=== PATIENT | male | born 1950 | race Caucasian/White ===

== ENCOUNTER → 2016-07-25 | Outpatient (CLI) | payer OTHER ==
[2016-07-25 08:50] LABS: BASOPHILS # (AUTO) 0.03 10*3/UL; BASOPHILS % (AUTO) 0.6 % (0-1); EOSINOPHILS # (AUTO) 0.12 10*3/UL; EOSINOPHILS % (AUTO) 2.5 % (0-8); HEMATOCRIT 44.5 % (42.0-52.0); HEMOGLOBIN 15.2 g/dL (14.0-18.0); LYMPHOCYTES # (AUTO) 1.51 10*3/uL; MEAN CORPUSCULAR HEMOGLOBIN 30.5 PG (27-31); MEAN CORPUSCULAR HGB CONC 34.2 g/dL (33-37); MEAN CORPUSCULAR VOLUME 89.2 FL (80-90); MEAN PLATELET VOLUME 9.9 FL (7.4-12.2); MONOCYTES # (AUTO) 0.53 10*3/UL (0.3-0.8); NEUTROPHILS # (AUTO) 2.64 10*3/UL; NEUTROPHILS % (AUTO) 54.5 % (50-80); RED BLOOD COUNT 4.99 10^6/uL (4.70-6.10)
[2016-07-25 08:53] LABS: PLATELET MORPHOLOGY COMMENT NORMAL MORPHOLOGY (NORM); RBC MORPHOLOGY COMMENT NORMAL MORPHOLOGY (NORM); WBC MORPHOLOGY COMMENT NORMAL MORPHOLOGY (NORM)
[2016-07-25 09:20] LABS: BLOOD UREA NITROGEN 18 mg/dL (7-22); CALCIUM 9.2 mg/dL (8.7-10.7); EST GLOMERULAR FILTRATION > 60 (>60 ml/min/1.73m(2)); SERUM ALBUMIN 4.2 g/dL (3.5-4.8)
[2016-07-25 09:32] LABS: CHOL/HDL RATIO 4.41 RATIO (0-4.0); LDL CHOLESTEROL,CALCULATED 82.6 mg/dL
== END ==
LOC: LAB 08:34
PROVIDERS: ATTEND Internal Medicine
DX: E78.5 Hyperlipidemia, unspecified (principal); I10 Essential (primary) hypertension; Z12.5 Encounter for screening for malignant neoplasm of prostate
CPT/HCPCS: 36415; 80053; 80061; 82550; 84443; 85025; G0103

== ENCOUNTER → 2016-07-27 | Outpatient (CLI) | payer OTHER | LOC: MMPC 11:11 | PROVIDERS: ATTEND Internal Medicine | DX: E78.5 Hyperlipidemia, unspecified (principal); I10 Essential (primary) hypertension; H61.23 Impacted cerumen, bilateral | CPT/HCPCS: 69210 ×2; 99214; G0463 ==

== ENCOUNTER → 2016-07-29 | Outpatient (CLI) | payer OTHER | LOC: MMPC 09:00 | PROVIDERS: ATTEND Physician Assistant Medical | DX: R04.0 Epistaxis (principal) | CPT/HCPCS: 99213; G0463 ==

== ENCOUNTER → 2016-08-23 | Outpatient (CLI) | payer OTHER ==
[2016-08-23 08:40] LABS: BLOOD UREA NITROGEN 21 mg/dL (7-22); BUN/CREATININE RATIO 26.25 (6-20); CALCIUM 9.1 mg/dL (8.7-10.7); CHOL/HDL RATIO 3.88 RATIO (0-4.0); EST GLOMERULAR FILTRATION > 60 (>60 ml/min/1.73m(2)); HDL CHOLESTEROL 27 mg/dL (40-150); SERUM ALBUMIN 4.1 g/dL (3.5-4.8); SERUM CHOLESTEROL 105 mg/dL (120-200)
== END ==
LOC: LAB 08:12
PROVIDERS: ATTEND Internal Medicine
DX: E78.5 Hyperlipidemia, unspecified (principal); I10 Essential (primary) hypertension
CPT/HCPCS: 36415; 80053; 80061; 82550

== ENCOUNTER → 2016-08-30 | Outpatient (CLI) | payer OTHER ==
--- NOTE | 2016-08-30 11:00 | DI ---
US ABDOMEN COMPLETE,08/30/2016 8:39 AM: Clinical History: Elevated liver function tests. Previous Exam: None at this facility. Findings: Multiple grayscale and color Doppler sonographic images are obtained through the abdomen, and demonst rates a normal aorta. The liver demonstrates increased echoes consistent with fatty infiltration. The pancreas is not well seen but is grossly normal throughout the visualized portions. The gallbladder is normal with the gal lbladder wall measuring 2 mm. A negative sonographic Dubois's sign was obtained. The common bile duct measures 3 mm. The right kidney is normal measuring 12.8 cm in length. The left kidney is also normal measuring 13.2 cm in length. The spleen is normal as well. Impression: Diffuse fatty infiltration of the liver otherwise unremarkable.
== END ==
LOC: US 08:35
PROVIDERS: ATTEND Internal Medicine
DX: R94.5 Abnormal results of liver function studies (principal); K76.0 Fatty (change of) liver, not elsewhere classified
CPT/HCPCS: 76700

== ENCOUNTER → 2016-10-31 | Outpatient (CLI) | payer OTHER ==
[2016-10-31 08:32] LABS: BLOOD UREA NITROGEN 17 mg/dL (7-22); BUN/CREATININE RATIO 21.25 (6-20); EST GLOMERULAR FILTRATION > 60 (>60 ml/min/1.73m(2))
[2016-10-31 08:45] LABS: CHOL/HDL RATIO 5.19 RATIO (0-4.0); LDL CHOLESTEROL,CALCULATED 145.4 mg/dL
== END ==
LOC: LAB 07:21
PROVIDERS: ATTEND Internal Medicine
DX: I10 Essential (primary) hypertension (principal); E78.5 Hyperlipidemia, unspecified
CPT/HCPCS: 36415; 80053; 80061; 82550

== ENCOUNTER → 2016-11-01 | Outpatient (CLI) | payer OTHER | LOC: MMPC 11:11 | PROVIDERS: ATTEND Internal Medicine | DX: E78.5 Hyperlipidemia, unspecified (principal); I10 Essential (primary) hypertension | CPT/HCPCS: 99213; G0463 ==